=== PATIENT | male | born 1990 | race African-American/Black ===

== ENCOUNTER 2016-11-04 00:13 | Emergency (ER) | payer OTHER ==
[~2016-11-04] VITALS: Ht 177.8 cm; Wt 101.8 kg
[~2016-11-04 00:13] MED LIST: MEDROL DOSEPAK4 MG PO; MOBIC7.5 MG PO; NAPROSYN500 MG PO; NAPROXEN500 MG PO; PEN-VEE K,VEET500 MG PO; TRAMADOL HCL50 MG PO
[2016-11-04] MEDS ORDERED: PERCOCET 5/31 TABLET PO (01:55)
[2016-11-04] MEDS ORDERED: SKELAXIN800 MG PO (01:55)
[2016-11-04 02:14] VITALS: BP 134/94
== END 2016-11-04 02:17 | disposition home or self-care (01) ==
LOC: EME 00:13
DX: S39.012A Strain of muscle, fascia and tendon of lower back, initial encounter (principal); V49.9XXD Car occupant (driver) (passenger) injured in unspecified traffic accident, subsequent encounter
CPT/HCPCS: 99281; 99284; J8540